=== PATIENT | female | born 1980 | race African-American/Black ===

== ENCOUNTER 2020-02-21 10:00 | Emergency (ER) | payer SELFPAY ==
[2020-02-21 10:23] LABS: Absolute Lymphocytes (CBC) 2.3 K/uL (0.7-4.9); Hematocrit 31.7 % (36.0-45.0); Lymphocytes % 36.7 % (15.3-44.8); RBC Red Blood Cell Count 4.15 M/uL (3.86-4.86)
[2020-02-21] MEDS ORDERED: DIAZEPAM 5 MG TABLET ONE (10:31)
[2020-02-21 10:40] LABS: BUN Blood Urea Nitrogen 10 mg/dL (7-18); Bicarbonate 27 mmol/L (21-32); Glucose Level 71 mg/dL (74-106); NT PRO-BNP 14 pg/mL (<125); Potassium 3.2 mmol/L (3.5-5.1); Sodium Level 139 mmol/L (136-145); Troponin (Emerg Dept Use Only) < 0.02 ng/mL (0.0-0.045)
--- NOTE | 2020-02-21 11:08 | RAD REPORT ---
EXAM DESCRIPTION: RAD - Chest Single View - 02/21/2020 10:22 am CLINICAL HISTORY: CHEST PAIN, left arm numbness COMPARISON: None TECHNIQUE: AP portable chest image was obtained 02/21/2020 10:22 am . FINDINGS: Lungs are clear. Heart and vasculature are normal. No measurable pleural effusion and no p neumothorax. No acute bony abnormality seen. No acute aortic findings suspected. IMPRESSION: No acute cardiopulmonary process.
--- NOTE | 2020-02-21 11:42 | RAD REPORT ---
EXAM DESCRIPTION: CT - Chest For Pe Angio - 02/21/2020 11:31 am CLINICAL HISTORY: CHEST PAIN COMPARISON: Chest Single View dated 02/21/2020 TECHNIQUE: Dynamically enhanced 3 mm thick images of the chest were obtained during administration o f approximately 150mL Isovue 370 IV contrast. Coronal and oblique MIP reconstruction images were gene rated and reviewed. Exam utilizes a protocol to evaluate the pulmonary arterial tree. All CT scans are performed using dose optimization technique as appropriate and may include automated exposure control or mA/KV adjustment according to patient size. FINDINGS: No pulmonary emboli are identified. The aorta as imaged shows no acute or suspicious finding. No pericardial thickening or effusion. No infiltrate or mass in the lung parenchyma. No pleural effusion or pleural thickening. No mediastinal or hilar suspicious masses. No chest wall masses or abnormal axillary lymphadenopathy. Limited imaging into the upper abdomen shows 2 low-density masses in the liver. A 17 millimeter left lobe and 27 millimeter posterior right lobe mass both show homogeneous fluid attenuation. Simple hepa tic cysts the single most likely etiology. IMPRESSION: No pulmonary emboli identified. No other significant or suspicious findings.
--- NOTE | 2020-02-21 12:50 | ER ---
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 Coronavirus screen: At this time, the client does not indicate any symptoms associated with coronavirus-19. Ebola Screen: Patient negative for fever greater than or equal to 101.5 degrees Fahrenheit, and additional compatible Ebola Virus Disease symptoms Patient denies exposure to infectious person. Patient denies travel to an Ebola-affected area in the 21 days before illness onset. No symptoms or risks identified at this time. Initial Sepsis Screen: Does the patient meet any 2 criteria? No. Patient's initial sepsis screen is negative. Does the patient have a suspected source of infection? No. Patient's initial sepsis screen is negative. Risk Assessment: Do you want to hurt yourself or someone else? Patient reports no desire to harm self or others. Onset of symptoms was February 21, 2020. 10:15 Method Of Arrival: Ambulatory iw 10:15 Acuity: SASKIA 3 iw Triage Assessment: 10:20 General: Appears distressed, comfortable, obese, Behavior is cooperative, appropriate bp for age, anxious. Pain: Complains of pain in chest and left arm. EENT: No deficits noted. Neuro: Level of Consciousness is awake, alert, obeys commands, Oriented to Appropriate for age. Cardiovascular: No deficits noted. Respiratory: No deficits noted. GI: No signs and/or symptoms were reported involving the gastrointestinal system. : No signs and/or symptoms were reported regarding the genitourinary system. Derm: No deficits noted. Musculoskeletal: No deficits noted. Historical: - Allergies: 10:17 No Known Allergies; iw - Home Meds: 10:17 None [Active]; iw - PMHx: 10:17 heart problems; iw - PSHx: 10:17 Tubal ligation; iw - Immunization history:: Adult Immunizations not up to date. - Social history:: Smoking status: Patient denies any tobacco usage or history of. Patient uses alcohol, occasionally. street drugs, cocaine, Methamphetamine (Meth). - Family history:: not pertinent. - Hospitalizations: : No recent hospitalization is reported. Screenin:10 Abuse screen: Denies threats or abuse. Nutritional screening: No deficits noted. aa5 Tuberculosis screening: No symptoms or risk factors identified. Fall Risk None identified. Assessment: 10:10 General: Appears uncomfortable, Behavior is cooperative. Pain: Complains of pain in aa5 chest Pain radiates to left arm Pain currently is 9 out of 10 on a pain scale. Quality of pain is described as sharp, numb, Is continuous. Neuro: Level of Consciousness is awake, alert, obeys commands, Oriented to person, place, time, situation. Cardiovascular: Heart tones S1 S2 present Rhythm is regular. Respiratory: Airway is patent Respiratory effort is even, unlabored, Respiratory pattern is regular, symmetrical. GI: Abdomen is round non-distended, Reports nausea, Patient currently denies vomiting. : No signs and/or symptoms were reported regarding the genitourinary system. EENT: No signs and/or symptoms were reported regarding the EENT system. Derm: Skin is dry, Skin is normal, Skin temperature is warm. Musculoskeletal: Range of motion: intact in all extremities. 10:15 Reassessment: Pt given warm blankets for comfort. aa5 10:17 Reassessment: x-ray at bedside . 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 PER PT, S/S IMPROVED. bp 11:42 Reassessment: Patient appears in no apparent distress at this time. Patient is alert, bp oriented x 3, equal unlabored respirations, skin warm/dry/pink. PT RETURNED FROM CT. RESULTS PENDING. 11:44 Reassessment: Patient states feeling better. Patient states symptoms have improved. Pt aa5 now resting in bed with eyes closed. Awaiting CT scan results. . Pain: Pain currently is 5 out of 10 on a pain scale. 12:27 Reassessment: Patient appears in no apparent distress at this time. Patient is alert, bp oriented x 3, equal unlabored respirations, skin warm/dry/pink. REPEAT TROP PENDING. 13:18 Reassessment: PT D/C HOME AMBULATORY, DX WITH NONSPECIFIC CHEST PAIN. bp Vital Signs: 10:15 BP 128 / 100; Pulse 74; Resp 16; Pulse Ox 98% ; Weight 81.65 kg; Height 5 ft. 4 in. iw (162.56 cm); Pain 9/10; 10:15 Temp 98.7(O); aa5 10:27 BP 123 / 87; aa5 10:55 BP 128 / 79; Pulse 85; Resp 17; Pulse Ox 100% ; bp 11:41 BP 130 / 86; Pulse 86; Resp 17; Pulse Ox 100% ; bp 12:26 BP 116 / 77; Pulse 74; Resp 21; Pulse Ox 100% ; bp 13:18 BP 113 / 75; Pulse 87; Resp 25; Temp 98.5; Pulse Ox 100% ; bp 10:15 Body Mass Index 30.90 (81.65 kg, 162.56 cm) iw ED Course: 10:02 Patient arrived in ED. ag5 10:03 Billy Velazquez MD is Attending Physician. rn 10:10 Arm band placed on. aa5 10:10 Patient has correct armband on for positive identification. Bed in low position. Call aa5 light in reach. Side rails up X2. satellite project site monitor on. Pulse ox on. NIBP on. 10:10 Initial lab(s) drawn, by tn, sent to lab. Inserted saline lock: 20 gauge in right aa5 antecubital area, using aseptic technique. Blood collected. 10:10 EKG done, by ED staff, reviewed by Billy Velazquez MD. aa5 10:17 Triage completed. iw 10:22 XRAY Chest (1 view) In Process Unspecified. EDMS 10:22 Patient maintains SpO2 saturation greater than 95% on room air. aa5 10:24 Sharon Best, RN is Primary Nurse. aa5 11:32 CT Chest For PE Angio In Process Unspecified. EDMS 11:54 Troponin (emerg Dept Use Only) Sent. bp 12:12 EKG done, by ED staff, reviewed by Billy Velazquez MD. 5 13:20 No provider procedures requiring assistance completed. IV discontinued, intact, bp bleeding controlled, No redness/swelling at site. Pressure dressing applied. 13:26 Primary Nurse role handed off by Sharon Best, RN aa5 Administered Medications: 10:15 Drug: Valium 5 mg Route: PO; bp 11:34 Follow up: Response: Anxiety decreased bp Outcome: 12:50 Discharge ordered by . rn 13:19 Discharged to home ambulatory, with family. bp 13:19 Condition: stable 13:19 Discharge instructions given to patient, Instructed on discharge instructions, follow up and referral plans. Demonstrated understanding of instructions, follow-up care. 13:20 Patient left the ED. bp Signatures: Dispatcher [employer] Lakisha Bagley RN RN iw Billy Velazquez MD MD rn Calderon, Audri, RN RN Angelia Simpson [facility] Brijesh Jorgensen, RN RN Samson [facility] Corrections: (The following items were deleted from the chart) 10:22 10:18 Arm band placed on iw aa5 10:24 10:11 Brijesh Jorgensen, RN is Primary Nurse. bp 5 10:24 10:24 Primary Nurse role handed off by Brijesh Jorgensen, RN [facility] 13:30 13:27 [facility] ED[facility]
--- NOTE | 2020-02-21 12:51 | EDPHYS ---
Physician Documentation [facility] Name: Jacklyn Head Age: 39 yrs Sex: Female : 1980 Arrival Date: 02/21/2020 Time: 10:02 Bed 5 Private MD: ED Physician Billy Velazquez HPI: 02/20 10:14 This 39 yrs old Female presents to ER via Unassigned with complaints of Chest Pain. rn 10:14 The patient or guardian reports chest pain that is located primarily in the anterior rn chest wall. The pain radiates to the left arm. The chest pain is described as burning. Duration: The patient or guardian reports a single episode, that is still ongoing. Modifying factors: The symptoms are alleviated by nothing. the symptoms are aggravated by nothing. Severity of pain: At its worst the pain was mild in the emergency department the pain is unchanged. The patient has not experienced similar symptoms in the past. Reports driving from [place], was on her way to deal with family issue, began to have burning left sided chest pain, also reports left arm tingling, no recent illness, no cough, reports has been known to use stimulant drugs in past. She feels like this is anxiety and stress due to family problems right now, and she was on her way to deal with one when this started. No trauma. Denies drug use today. . Historical: - Allergies: 10:17 No Known Allergies; iw - Home Meds: 10:17 None [Active]; iw - PMHx: 10:17 heart problems; iw - PSHx: 10:17 Tubal ligation; iw - Immunization history:: Adult Immunizations not up to date. - Social history:: Smoking status: Patient denies any tobacco usage or history of. Patient uses alcohol, occasionally. street drugs, cocaine, Methamphetamine (Meth). - Family history:: not pertinent. - Hospitalizations: : No recent hospitalization is reported. ROS: 10:14 Constitutional: Negative for fever, chills, and weight loss, Eyes: Negative for injury, rn pain, redness, and discharge, Neck: Negative for injury, pain, and swelling, Cardiovascular: Negative for palpitations, and edema, Respiratory: Negative for shortness of breath, cough, wheezing, and pleuritic chest pain, Abdomen/GI: Negative for abdominal pain, nausea, vomiting, diarrhea, and constipation, MS/Extremity: Negative for injury and deformity, Skin: Negative for injury, rash, and discoloration, Neuro: Negative for headache, weakness, and seizure. Exam: 10:14 Constitutional: This is a well developed, well nourished patient who is awake, alert, rn tearful Head/Face: Normocephalic, atraumatic. Cardiovascular: Regular rate and rhythm. No pulse deficits. Respiratory: No increased work of breathing, no retractions or nasal flaring. Abdomen/GI: Soft, non-tender Skin: Warm, dry MS/ Extremity: Pulses equal, no cyanosis Neuro: Awake and alert, GCS 15, oriented to person, place, time, and situation. Cranial nerves II-XII grossly intact. Motor strength 5/5 in all extremities. Sensory grossly intact. 10:19 ECG was reviewed by the Attending Physician. rn Vital Signs: 10:15 BP 128 / 100; Pulse 74; Resp 16; Pulse Ox 98% ; Weight 81.65 kg; Height 5 ft. 4 in. iw (162.56 cm); Pain 9/10; 10:15 Temp 98.7(O); aa5 10:27 BP 123 / 87; aa5 10:55 BP 128 / 79; Pulse 85; Resp 17; Pulse Ox 100% ; bp 11:41 BP 130 / 86; Pulse 86; Resp 17; Pulse Ox 100% ; bp 12:26 BP 116 / 77; Pulse 74; Resp 21; Pulse Ox 100% ; bp 13:18 BP 113 / 75; Pulse 87; Resp 25; Temp 98.5; Pulse Ox 100% ; bp 10:15 Body Mass Index 30.90 (81.65 kg, 162.56 cm) iw MDM: 10:03 Patient medically screened. rn 12:02 ED course: Pt improved, chest pain resolved after 5mg valium. Getting repeat troponin rn and ecg, if normal can be discharged home. . 12:16 ED course: Repeat ecg without acute ischemia. rn 12:49 Differential diagnosis: acute myocardial infarction, acute pericarditis, anxiety, chest rn wall pain, costochondritis, esophagitis, pleurisy, pneumothorax, pulmonary embolus. Data reviewed: vital signs, nurses notes, lab test result(s), EKG, radiologic studies, CT scan, plain films, and as a result, I will discharge patient. Counseling: I had a detailed discussion with the patient and/or guardian regarding: the historical points, exam findings, and any diagnostic results supporting the discharge/admit diagnosis, lab results, radiology results, the need for outpatient follow up, to return to the emergency department if symptoms worsen or persist or if there are any questions or concerns that arise at home. Special discussion: Based on the patient's history, exam, and Dx evaluation, there is no indication for emergent intervention or inpatient Tx. It is understood by the patient/guardian that if the Sx's persist or worsen they need to return immediately for re-evaluation. I discussed with the patient/guardian in detail that at this point there is no indication for admission to the hospital. It is understood, however, that if the symptoms persist or worsen the patient needs to return immediately for re-evaluation. ED course: Repeat trop neg. Sleeping and asymptomatic. . 02/20 10:08 Order name: Basic Metabolic Panel; Complete Time: 10: rn 02/20 10:08 Order name: CBC with Diff; Complete Time: : rn 02/20 10:08 Order name: NT PRO-BNP; Complete Time: : rn 02/20 10:08 Order name: Troponin (emerg Dept Use Only); Complete Time: : rn 02/20 10:08 Order name: D-Dimer; Complete Time: : rn 02/20 11:46 Order name: Troponin (emerg Dept Use Only); Complete Time: 12:49 rn 02/20 10:08 Order name: XRAY Chest (1 view); Complete Time: 11:44 rn 02/20 10:08 Order name: EKG; Complete Time: 10: rn 02/20 10:08 Order name: Cardiac monitoring; Complete Time: : rn 02/20 10:08 Order name: EKG - Nurse/Tech; Complete Time: : rn 02/20 10:08 Order name: IV Saline Lock; Complete Time: : rn 02/20 10:25 Order name: CT Chest For PE Angio; Complete Time: 11: rn 02/20 11:54 Order name: EKG; Complete Time: 11:55 bp 02/20 10:08 Order name: Labs collected and sent; Complete Time: 10: rn 02/20 10:08 Order name: O2 Per Protocol; Complete Time: : rn 02/20 10:08 Order name: O2 Sat Monitoring; Complete Time: rn 02/20 11:54 Order name: EKG - Nurse/Tech; Complete Time: 11:54 bp EC: Rate is 74 beats/min. Rhythm is regular. QRS [place] is Normal. AL interval is normal. No rn Q waves. T waves are Inverted in leads V3, V4, V5. No ST changes noted. Clinical impression: NSR w/ Non-specific ST/T Changes. Interpreted by me. Reviewed by me. Administered Medications: 10:15 Drug: Valium 5 mg Route: PO; bp 11:34 Follow up: Response: Anxiety decreased bp Disposition: 02/21/20 12:50 Discharged to Home. Impression: Chest pain, unspecified. - Condition is Stable. - Discharge Instructions: Nonspecific Chest Pain. - Medication Reconciliation Form, Thank You Letter, Antibiotic Education, Prescription Opioid Use form. - Follow up: Private Physician; When: As needed; Reason: Recheck today's complaints, Re-evaluation by your physician. - Problem is new. - Symptoms have improved. Signatures: Dispatcher [employer] EDMS Lakisha Zhang RN RN iw Billy Velazquez MD MD rn Calderon, Audri, RN RN aa5 Brijesh Jorgensen RN RN bp Corrections: (The following items were deleted from the chart) 13:20 12:50 02/21/2020 12:50 Discharged to Home. Impression: Chest pain, unspecified. bp Condition is Stable. Forms are Medication Reconciliation Form, Thank You Letter, Antibiotic Education, Prescription Opioid Use. Follow up: Private Physician; When: As needed; Reason: Recheck today's complaints, Re-evaluation by your physician. Problem is new. Symptoms have improved. rn 13:27 13:20 02/21/2020 12:50 Discharged to Home. Impression: Chest pain, unspecified. aa5 Condition is Stable. Discharge Instructions: Nonspecific Chest Pain. Forms are Medication Reconciliation Form, Thank You Letter, Antibiotic Education, Prescription Opioid Use. Follow up: Private Physician; When: As needed; Reason: Recheck today's complaints, Re-evaluation by your physician. Problem is new. Symptoms have improved. bp
[2020-02-21 13:31] VITALS: O2SAT 100
[2020-02-21 13:36] VITALS: BP 113/75; TEMP 98.5
== END 2020-02-21 13:27 | disposition home or self-care (01) ==
LOC: ER 10:00
DX: R07.9 Chest pain, unspecified (principal)
CPT/HCPCS: 36415; 71045; 71275; 80048; 83880; 84484; 85025; 85379; 93005; 99285; Q9967